=== PATIENT | male | born 1965 | race Hispanic/Latino ===

== ENCOUNTER → 2018-09-11 | Day surgery (SDC) | payer OTHER ==
[~2018-09-11] MED LIST: ASPIR 8181 MG PO; FENTANYL CITRATE/PF 100MCG/2 ML INJ ONE; HYOSCYAMINE SULFATE 0.5 MG/ML INJ ONE; LIDOCAINE HCL 2% LOCAL INJ 5 ML SDV VIAL INJ ONE; LISINOPRIL10 MG PO; MIDAZOLAM HCL 2 MG/2 ML VIAL ONE; PROPOFOL IV EMULSION 10 MG/ML 50 ML VIAL ONE
[2018-09-11 16:42] LABS: HEMATOCRIT 34.5 % (38.2-49.6); HEMOGLOBIN 10.9 g/dL (14.0-18.0)
[2018-09-11 16:52] VITALS: BP 96/65
--- NOTE | 2018-09-11 17:00 | Operative Report ---
DATE OF PROCEDURE: September 11, 2018 REFERRING PHYSICIAN: Dr. Socorro Liriano. PROCEDURE PERFORMED: Esophagogastroduodenoscopy with esophageal dilatation and biopsies and a colonoscopy with polypectomy and biopsies. INDICATIONS FOR ESOPHAGOGASTRODUODENOSCOPY: Dysphagia, nausea, heartburn. INDICATIONS FOR COLONOSCOPY: Colorectal cancer screening. MEDICATION: Patient was done under MAC. Please see anesthesiologist's note. PROCEDURE: With patient in left lateral decubitus position, a flexible fiberoptic Olympus gastroscope was introduced into the esophagus under direct visualization without any difficulty. There was some patchy erythema noted in distal esophagus. A minute nodule was noted at the GE junction that was biopsied. The scope was then advanced with ease into the stomach, traversing a mild stricture at the GE junction as well as a small hiatal hernia. The stricture was dilated to size 52-[place] Palomares. The mucosa overlying the antrum and the body revealed some patchy erythema and mild to moderate edema and biopsies were obtained and sent to stain for H. pylori. Pylorus appeared to be of normal contour and shape, was intubated with ease, and the scope was advanced all the way to the 2nd portion of the duodenum. The scope was then withdrawn slowly and biopsies were obtained from the proximal and 2nd portion to rule out sprue. Mucosa overlying the duodenal bulb grossly appeared to be within normal limits. The scope was then withdrawn back into the stomach and retroflexed. Mucosa overlying the fundus appeared to be within normal limits. The previously described hiatal hernia was also noted in the retroflexed position. The scope was then straightened out. It was subsequently withdrawn. Patient tolerated the procedure well. IMPRESSIONS 1. Distal esophagitis, mild. 2. Nodule gastroesophageal junction, biopsied. 3. Esophageal stricture at gastroesophageal junction, dilated to size 52-[place] Palomares. 4. Small hiatal hernia. 5. Gastritis, biopsied. Biopsies sent to stain for Helicobacter pylori. 6. Rule out sprue. PLAN: Follow up histology. Initiate Protonix 40 mg 1 p.o. q.a.m. a.c. Patient was then turned around and after adequate lubrication of the anal canal, a flexible fiberoptic Olympus colonoscope was inserted into the rectum with ease and advanced all the way to the cecum. There was a minute, approximately 6-mm polypoid lesion that was part of the ileocecal valve and that was biopsied. The scope was then withdrawn slowly and diverticular disease was noted throughout the colon. Two large polypoid lesions were noted in the sigmoid colon. One was approximately 1.8 cm and the other was approximately 2.5 cm. They were removed per snare electrocautery and piecemeal snare electrocautery. Both polypectomy sites were hemoclipped. The rectum appeared to be within normal limits. The scope was then retroflexed into the distal rectum and small internal hemorrhoids were noted, none of which was actively bleeding. The scope was then straightened out. It was subsequently withdrawn. Patient tolerated the procedure well. IMPRESSIONS 1. Approximately 6-mm polypoid lesion ileocecal valve, biopsied. 2. Freeman diverticulosis. 3. Large sigmoid colon polyps up to 2.5 cm in size, removed per piecemeal electrocautery and snare electrocautery. Both polypectomy sites were hemoclipped. 4. Internal hemorrhoids, none actively bleeding. PLAN: Follow up histology. Patient will need a followup colonoscopy in 3 to 6 months to remove any residual polypoid tissue. Job#: [id number] TA cc:SOCORRO LIRIANO MD,
== END | disposition home or self-care (01) ==
LOC: OR 12:42
PROVIDERS: ATTEND Internal Medicine Gastroenterology
DX: Z12.11 Encounter for screening for malignant neoplasm of colon (principal); D12.5 Benign neoplasm of sigmoid colon; K29.50 Unspecified chronic gastritis without bleeding; K22.2 Esophageal obstruction; B96.81 Helicobacter pylori [H. pylori] as the cause of diseases classified elsewhere; K20.9 Esophagitis, unspecified; K29.80 Duodenitis without bleeding; K44.9 Diaphragmatic hernia without obstruction or gangrene; K21.9 Gastro-esophageal reflux disease without esophagitis; K57.30 Diverticulosis of large intestine without perforation or abscess without bleeding; K64.8 Other hemorrhoids; R19.7 Diarrhea, unspecified; I10 Essential (primary) hypertension; Z88.8 Allergy status to other drugs, medicaments and biological substances; Z01.810 Encounter for preprocedural cardiovascular examination; Z79.82 Long term (current) use of aspirin; Z68.30 Body mass index [BMI] 30.0-30.9, adult; Z80.0 Family history of malignant neoplasm of digestive organs
CPT/HCPCS: 36415; 43239; 43450; 45380; 45385; 85014; 85018; 93005; J1980; J2001; J2250; 44391